=== PATIENT | female | born 1955 | race Caucasian/White ===

== ENCOUNTER 2018-12-30 14:29 | Inpatient (IN) ==
[2018-12-30 14:56] LABS: Bilirubin,Urine Small (Negative); Blood,Urine Negative (Negative); Clarity,Urine Cloudy (Clear); Color,Urine Dark Yellow (Yellow); Glucose,Urine (UA) Normal (Normal); Ketones,Urine Negative (Negative); Leukocyte Esterase,Urine Small (Negative); Nitrite,Urine Negative (Negative); Protein,Urine Trace mg/dL (Neg-Trace); Specific Gravity,Urine 1.024 (1.010-1.025); Urobilinogen,Urine Normal (Normal)
[2018-12-30 14:59] LABS: Mean Platelet Volume 11.1 fL (9.4-12.4); Red Cell Distribution Width 14.5 % (11.5-14.5)
[2018-12-30 15:01] LABS: Hematocrit 31.8 % (35.3-44.9); Mean Corpuscular HGB Conc 34.6 g/dL (31.6-35.5); Mean Corpuscular Hemoglobin 35.3 pg (28.0-33.3); Mean Corpuscular Volume 101.9 fL (83.0-100.0); Monocytes # 0.1 K/mcL (0.0-1.3); Red Blood Count 3.12 M/mcL (3.82-4.97)
[2018-12-30 15:08] LABS: Bacteria,Urine Moderate per hpf (None-Few); Hyaline Casts,Urine Few per lpf (None-Few); Squamous Epithelial Cell,Urine Many per lpf (None-Few); WBC,Urine 15-30 per hpf (0-3)
[2018-12-30] MEDS ORDERED: 0.9 % Sodium Chloride 1,000 ML IVC ONE (15:13)
[2018-12-30] MEDS ORDERED: Ondansetron 4 MG/2 ML VIAL IVP STA (15:14)
[2018-12-30 15:19] LABS: Alanine Aminotransferase 30 Units/L (7-52); Albumin 3.7 g/dL (3.5-5.7); Albumin/Globulin Ratio 1.9 (1.1-2.2); Alkaline Phosphatase 60 Units/L (34-104); Amylase 18 Units/L (29-103); Aspartate Amino Transferase 16 Units/L (13-39); BUN/Creatinine Ratio 12 (6-26); Bilirubin,Direct 0.2 mg/dL (0.0-0.2); Bilirubin,Indirect 0.7 mg/dL (0.0-1.0); Bilirubin,Total 0.9 mg/dL (0.3-1.0); Blood Urea Nitrogen 8 mg/dL (8-23); Calcium 8.9 mg/dL (8.6-10.3); Carbon Dioxide 27 mEq/L (23-29); Chloride 98 mEq/L (98-107); Glucose 109 mg/dL (70-105); Lipase 12 Units/L (11-82); Osmolality,Calculated 277 (280-300); Potassium 3.4 mEq/L (3.5-5.1); Sodium 134 mEq/L (136-145); Total Protein 5.7 g/dL (6.4-8.9); eGFR For African Americans > 60 (> 60); eGFR For Non-African Americans > 60 (> 60)
[2018-12-30 15:40] LABS: Platelet Count 71 K/mcL (140-400); White Blood Count 0.4 K/mcL (4.3-11.1)
[2018-12-30 15:45] LABS: Lymphocytes # 0.3 K/mcL (0.6-4.6)
[2018-12-30 15:46] LABS: Anisocytosis 1+ (Not Present); Macrocytosis Present (Not Present); Platelet Estimate Decreased (Normal); Reactive Lymphocytes Present (Not Present)
[2018-12-30] MEDS ORDERED: Cefepime HCl 1,000 MG in Water for inj. (sterile) 10 ML IVP STA ×2 (16:04→17:03)
[2018-12-30] MEDS: Ringers Solution, Lactated 1,000 ML IVC SCH (22:34)
[2018-12-30] MEDS: Acyclovir 200 MG CAPSULE PO SCH (22:34)
[2018-12-31] MEDS: Cefepime HCl 2,000 MG in 0.9 % Sodium Chloride Mini Bag 100 ML IVPB SCH ×3 (01:07→20:09)
[2018-12-31] MEDS: *HR* Promethazine 25 MG/ML VIAL IVP PRN (01:08)
[2018-12-31] MEDS: Ringers Solution, Lactated 1,000 ML IVC SCH (04:20)
[2018-12-31] MEDS: *HR* Heparin 5,000 UNIT/ML VIAL SQ SCH ×2 (04:38→17:31)
[2018-12-31 05:55] LABS: Adenovirus Not Detected (Not Detect); Bordetella Pertussis Not Detected (Not Detect); Chlamydophila pneumoniae Not Detected (Not Detect); Coronavirus 229E Not Detected (Not Detect); Coronavirus HKU1 Not Detected (Not Detect); Coronavirus NL63 Not Detected (Not Detect); Coronavirus OC43 Not Detected (Not Detect); Human Metapneumovirus Not Detected (Not Detect); Human Rhinovirus/Enterovirus Not Detected (Not Detect); Influenza A Subtype 2009 H1 Not Detected (Not Detect); Influenza A Untypeable Not Detected (Not Detect); Influenza B Not Detected (Not Detect); Mycoplasma pneumoniae Not Detected (Not Detect); Parainfluenza Virus 1 Not Detected (Not Detect); Parainfluenza Virus 2 Not Detected (Not Detect); Parainfluenza Virus 3 Not Detected (Not Detect); Parainfluenza Virus 4 Not Detected (Not Detect); Respiratory Syncytial Virus Not Detected (Not Detect)
[2018-12-31 06:08] LABS: Hematocrit 27.4 % (35.3-44.9)
[2018-12-31 06:09] LABS: Basophils % 2.1 %; Eosinophils % 4.2 %; Hemoglobin 9.3 g/dL (11.5-15.4); Immature Granulocytes % 2.1 % (0-4); Lymphocytes # 0.2 K/mcL (0.6-4.6); Lymphocytes % 37.5 %; Mean Corpuscular HGB Conc 33.9 g/dL (31.6-35.5); Mean Corpuscular Hemoglobin 35.4 pg (28.0-33.3); Mean Corpuscular Volume 104.2 fL (83.0-100.0); Mean Platelet Volume 10.9 fL (9.4-12.4); Monocytes # 0.2 K/mcL (0.0-1.3); Monocytes % 31.3 %; Neutrophils # 0.1 K/mcL (1.6-8.9); Red Blood Count 2.63 M/mcL (3.82-4.97); Red Cell Distribution Width 14.2 % (11.5-14.5); Segmented Neutrophils % 22.8 %
[2018-12-31 06:33] LABS: BUN/Creatinine Ratio 6 (6-26); Blood Urea Nitrogen 4 mg/dL (8-23); Calcium 8.2 mg/dL (8.6-10.3); Carbon Dioxide 28 mEq/L (23-29); Chloride 101 mEq/L (98-107); Glucose 94 mg/dL (70-105); Magnesium 1.6 mg/dL (1.6-2.6); Osmolality,Calculated 277 (280-300); Phosphorous 3.4 mg/dL (2.7-4.5); Potassium 3.8 mEq/L (3.5-5.1); Sodium 135 mEq/L (136-145); eGFR For African Americans > 60 (> 60); eGFR For Non-African Americans > 60 (> 60)
[2018-12-31 07:05] LABS: Platelet Count 74 K/mcL (140-400); White Blood Count 0.5 K/mcL (4.3-11.1)
[2018-12-31] MEDS: Acyclovir 200 MG CAPSULE PO SCH ×2 (08:53→20:09)
[2018-12-31] MEDS: Cholecalciferol (D-3) 1,000 UNIT (25MCG) TABLET PO SCH (08:53)
[2018-12-31] MEDS ORDERED: FLUCONAZOLE 400 MG PO SCH (09:00)
[2018-12-31] MEDS: 0.9 % Sodium Chloride 1,000 ML IVC SCH (12:56)
[2018-12-31] MEDS: Ondansetron 4 MG/2 ML VIAL IVP PRN (18:44)
[2019-01-01] MEDS: 0.9 % Sodium Chloride 1,000 ML IVC SCH ×3 (06:09→17:55)
[2019-01-01] MEDS: *HR* Heparin 5,000 UNIT/ML VIAL SQ SCH ×2 (06:18→17:54)
[2019-01-01] MEDS: Cefepime HCl 2,000 MG in 0.9 % Sodium Chloride Mini Bag 100 ML IVPB SCH ×2 (08:38→19:29)
[2019-01-01] MEDS: *HR* Promethazine 25 MG/ML VIAL IVP PRN ×2 (08:39→17:55)
[2019-01-01] MEDS: Cholecalciferol (D-3) 1,000 UNIT (25MCG) TABLET PO SCH (08:39)
[2019-01-01 08:40] LABS: Hematocrit 28.1 % (35.3-44.9); Hemoglobin 9.6 g/dL (11.5-15.4); Mean Corpuscular HGB Conc 34.2 g/dL (31.6-35.5); Mean Corpuscular Hemoglobin 36.1 pg (28.0-33.3); Mean Corpuscular Volume 105.6 fL (83.0-100.0); Mean Platelet Volume 10.8 fL (9.4-12.4); Monocytes # 0.7 K/mcL (0.0-1.3); Nucleated Red Blood Cells 0.8 /100 WBC (0); Platelet Count 110 K/mcL (140-400); Red Blood Count 2.66 M/mcL (3.82-4.97); Red Cell Distribution Width 14.6 % (11.5-14.5)
[2019-01-01] MEDS: Acyclovir 200 MG CAPSULE PO SCH ×2 (08:40→21:24)
[2019-01-01 08:44] LABS: White Blood Count 3.7 K/mcL (4.3-11.1)
[2019-01-01] MEDS ORDERED: Acetaminophen 325 MG TABLET PO PRN (08:51)
[2019-01-01 08:54] LABS: BUN/Creatinine Ratio 9 (6-26); Blood Urea Nitrogen 5 mg/dL (8-23); Calcium 8.1 mg/dL (8.6-10.3); Carbon Dioxide 27 mEq/L (23-29); Chloride 103 mEq/L (98-107); Glucose 91 mg/dL (70-105); Osmolality,Calculated 281 (280-300); Potassium 3.5 mEq/L (3.5-5.1); Sodium 137 mEq/L (136-145); eGFR For African Americans > 60 (> 60); eGFR For Non-African Americans > 60 (> 60)
[2019-01-01 09:30] LABS: Anisocytosis 1+ (Not Present); Lymphocytes # 0.5 K/mcL (0.6-4.6); Neutrophils # 2.5 K/mcL (1.6-8.9); Platelet Estimate Decreased (Normal)
[2019-01-01 09:31] LABS: Macrocytosis Present (Not Present)
[2019-01-01] MEDS ORDERED: Isovue-370 500 ML BOTTLE IVP ONE (18:16)
[2019-01-02] MEDS: Melatonin 3 MG TABLET PO PRN ×2 (00:27→22:08)
[2019-01-02] MEDS: *HR* Promethazine 25 MG/ML VIAL IVP SCH ×5 (00:29→23:39)
[2019-01-02] MEDS: 0.9 % Sodium Chloride 1,000 ML IVC SCH ×2 (06:24→20:18)
[2019-01-02] MEDS: Cefepime HCl 2,000 MG in 0.9 % Sodium Chloride Mini Bag 100 ML IVPB SCH ×2 (06:25→22:08)
[2019-01-02] MEDS: *HR* Heparin 5,000 UNIT/ML VIAL SQ SCH ×2 (06:25→20:19)
[2019-01-02 06:33] LABS: Hemoglobin 9.4 g/dL (11.5-15.4); Mean Corpuscular HGB Conc 33.6 g/dL (31.6-35.5); Mean Corpuscular Hemoglobin 35.9 pg (28.0-33.3); Mean Corpuscular Volume 106.9 fL (83.0-100.0); Mean Platelet Volume 10.5 fL (9.4-12.4); Monocytes # 1.9 K/mcL (0.0-1.3); Nucleated Red Blood Cells 0.5 /100 WBC (0); Platelet Count 154 K/mcL (140-400); Red Blood Count 2.62 M/mcL (3.82-4.97); Red Cell Distribution Width 15.3 % (11.5-14.5)
[2019-01-02 06:37] LABS: White Blood Count 13.4 K/mcL (4.3-11.1)
[2019-01-02 06:51] LABS: Anisocytosis 1+ (Not Present); Large Platelets Present (Not Present); Lymphocytes # 1.9 K/mcL (0.6-4.6); Neutrophils # 9.7 K/mcL (1.6-8.9); Platelet Estimate Normal (Normal)
[2019-01-02 06:52] LABS: Polychromasia 1+ (Not Present)
[2019-01-02 06:59] LABS: BUN/Creatinine Ratio 7 (6-26); Blood Urea Nitrogen 4 mg/dL (8-23); Carbon Dioxide 27 mEq/L (23-29); Chloride 104 mEq/L (98-107); Glucose 81 mg/dL (70-105); Magnesium 1.8 mg/dL (1.6-2.6); Osmolality,Calculated 286 (280-300); Phosphorous 3.3 mg/dL (2.7-4.5); Potassium 3.6 mEq/L (3.5-5.1); Sodium 140 mEq/L (136-145); eGFR For African Americans > 60 (> 60); eGFR For Non-African Americans > 60 (> 60)
[2019-01-02] MEDS: Cholecalciferol (D-3) 1,000 UNIT (25MCG) TABLET PO SCH (20:18)
[2019-01-02] MEDS: Acyclovir 200 MG CAPSULE PO SCH ×2 (20:18→22:08)
[2019-01-03] MEDS: *HR* Heparin 5,000 UNIT/ML VIAL SQ SCH ×2 (05:25→17:22)
[2019-01-03] MEDS: *HR* Promethazine 25 MG/ML VIAL IVP SCH ×3 (05:25→17:22)
[2019-01-03] MEDS: 0.9 % Sodium Chloride 1,000 ML IVC SCH ×3 (05:29→15:15)
[2019-01-03 06:02] LABS: Hematocrit 28.3 % (35.3-44.9); Hemoglobin 9.5 g/dL (11.5-15.4); Mean Corpuscular HGB Conc 33.6 g/dL (31.6-35.5); Mean Corpuscular Hemoglobin 35.6 pg (28.0-33.3); Mean Platelet Volume 10.2 fL (9.4-12.4); Nucleated Red Blood Cells 0.6 /100 WBC (0); Platelet Count 219 K/mcL (140-400); Red Blood Count 2.67 M/mcL (3.82-4.97)
[2019-01-03 06:16] LABS: BUN/Creatinine Ratio 9 (6-26); Blood Urea Nitrogen 5 mg/dL (8-23); Calcium 7.7 mg/dL (8.6-10.3); Carbon Dioxide 24 mEq/L (23-29); Chloride 108 mEq/L (98-107); Glucose 84 mg/dL (70-105); Magnesium 1.7 mg/dL (1.6-2.6); Osmolality,Calculated 284 (280-300); Phosphorous 3.2 mg/dL (2.7-4.5); Potassium 3.4 mEq/L (3.5-5.1); Sodium 139 mEq/L (136-145); eGFR For African Americans > 60 (> 60); eGFR For Non-African Americans > 60 (> 60)
[2019-01-03 06:18] LABS: White Blood Count 22.2 K/mcL (4.3-11.1)
[2019-01-03 07:01] LABS: Lymphocytes # 2.7 K/mcL (0.6-4.6); Monocytes # 0.9 K/mcL (0.0-1.3); Neutrophils # 18.7 K/mcL (1.6-8.9)
[2019-01-03 07:03] LABS: Platelet Estimate Normal (Normal)
[2019-01-03] MEDS: Cholecalciferol (D-3) 1,000 UNIT (25MCG) TABLET PO SCH (08:47)
[2019-01-03] MEDS: Acyclovir 200 MG CAPSULE PO SCH ×2 (08:47→20:34)
[2019-01-03] MEDS: Cefepime HCl 2,000 MG in 0.9 % Sodium Chloride Mini Bag 100 ML IVPB SCH ×2 (08:48→20:34)
[2019-01-03] MEDS: Ondansetron 4 MG/2 ML VIAL IVP PRN (08:56)
[2019-01-03] MEDS: Potassium Chloride Elixir 20 MEQ/15 ML UDC PO SCH ×2 (12:11→15:15)
[2019-01-04] MEDS: 0.9 % Sodium Chloride 1,000 ML IVC SCH (00:54)
[2019-01-04] MEDS: *HR* Promethazine 25 MG/ML VIAL IVP SCH ×2 (00:54→06:07)
[2019-01-04] MEDS: Melatonin 3 MG TABLET PO PRN (00:58)
[2019-01-04 03:38] LABS: Hematocrit 29.3 % (35.3-44.9); Hemoglobin 9.5 g/dL (11.5-15.4); Mean Corpuscular HGB Conc 32.4 g/dL (31.6-35.5); Mean Corpuscular Hemoglobin 35.6 pg (28.0-33.3); Mean Corpuscular Volume 109.7 fL (83.0-100.0); Mean Platelet Volume 9.3 fL (9.4-12.4); Nucleated Red Blood Cells 0.9 /100 WBC (0); Platelet Count 210 K/mcL (140-400); Red Blood Count 2.67 M/mcL (3.82-4.97); Red Cell Distribution Width 16.4 % (11.5-14.5); White Blood Count 15.1 K/mcL (4.3-11.1)
[2019-01-04 04:01] LABS: BUN/Creatinine Ratio 5 (6-26); Blood Urea Nitrogen 3 mg/dL (8-23); Calcium 7.8 mg/dL (8.6-10.3); Carbon Dioxide 26 mEq/L (23-29); Chloride 106 mEq/L (98-107); Glucose 96 mg/dL (70-105); Magnesium 1.8 mg/dL (1.6-2.6); Osmolality,Calculated 278 (280-300); Phosphorous 3.1 mg/dL (2.7-4.5); Potassium 3.9 mEq/L (3.5-5.1); Sodium 136 mEq/L (136-145); eGFR For African Americans > 60 (> 60); eGFR For Non-African Americans > 60 (> 60)
[2019-01-04 04:30] LABS: Anisocytosis 1+ (Not Present); Lymphocytes # 2.7 K/mcL (0.6-4.6); Monocytes # 0.9 K/mcL (0.0-1.3); Neutrophils # 11.5 K/mcL (1.6-8.9); Platelet Estimate Normal (Normal); Polychromasia 1+ (Not Present)
[2019-01-04] MEDS: *HR* Heparin 5,000 UNIT/ML VIAL SQ SCH (06:07)
[2019-01-04] MEDS: Acyclovir 200 MG CAPSULE PO SCH (10:20)
[2019-01-04] MEDS: Cholecalciferol (D-3) 1,000 UNIT (25MCG) TABLET PO SCH (10:21)
[2019-01-04] MEDS: Cefepime HCl 2,000 MG in 0.9 % Sodium Chloride Mini Bag 100 ML IVPB SCH (10:21)
[2019-01-04 11:16] VITALS: BP 132/74
== END 2019-01-04 12:22 | disposition home or self-care (01) | DRG 808 ==
LOC: EMEROOARM 14:29 → 3ANU 14:29
PROVIDERS: ADMIT Student in an Organized Health Care Education/Training Program; ATTEND Student in an Organized Health Care Education/Training Program

== ENCOUNTER 2019-02-09 08:21 | Inpatient (IN) ==
[2019-02-09] MEDS ORDERED: Ondansetron 4 MG/2 ML VIAL IVP ONE ×2 (08:42→09:15)
[2019-02-09] MEDS ORDERED: 0.9 % Sodium Chloride 1,000 ML ONE (08:42)
[2019-02-09] MEDS: 0.9 % Sodium Chloride 1,000 ML IVC SCH ×2 (08:47→10:16)
[2019-02-09 09:05] LABS: Mean Platelet Volume 12.2 fL (9.4-12.4)
[2019-02-09 09:07] LABS: Hematocrit 30.4 % (35.3-44.9); Hemoglobin 10.1 g/dL (11.5-15.4); Lymphocytes # 0.1 K/mcL (0.6-4.6); Mean Corpuscular HGB Conc 33.2 g/dL (31.6-35.5); Mean Corpuscular Hemoglobin 34.8 pg (28.0-33.3); Mean Corpuscular Volume 104.8 fL (83.0-100.0); Red Cell Distribution Width 13.3 % (11.5-14.5)
[2019-02-09 09:10] LABS: INR 1.1; Prothrombin Time 12.2 Seconds (9.4-12.1)
[2019-02-09 09:13] LABS: Activated Partial Thrombo Time 24.2 Seconds (26.0-36.0)
[2019-02-09 09:24] LABS: Alanine Aminotransferase 55 Units/L (7-52); Albumin 3.3 g/dL (3.5-5.7); Albumin/Globulin Ratio 1.7 (1.1-2.2); Alkaline Phosphatase 69 Units/L (34-104); Aspartate Amino Transferase 25 Units/L (13-39); BUN/Creatinine Ratio 22 (6-26); Bilirubin,Direct 0.1 mg/dL (0.0-0.2); Bilirubin,Indirect 0.8 mg/dL (0.0-1.0); Bilirubin,Total 0.9 mg/dL (0.3-1.0); Blood Urea Nitrogen 14 mg/dL (8-23); Calcium 8.6 mg/dL (8.6-10.3); Carbon Dioxide 27 mEq/L (23-29); Chloride 102 mEq/L (98-107); Glucose 100 mg/dL (70-105); Magnesium 1.5 mg/dL (1.6-2.6); Osmolality,Calculated 287 (280-300); Potassium 3.3 mEq/L (3.5-5.1); Sodium 138 mEq/L (136-145); Total Protein 5.3 g/dL (6.4-8.9); eGFR For African Americans > 60 (> 60); eGFR For Non-African Americans > 60 (> 60)
[2019-02-09 09:29] LABS: White Blood Count 0.2 K/mcL (4.3-11.1)
[2019-02-09 09:30] LABS: Platelet Count 30 K/mcL (140-400)
[2019-02-09 09:31] LABS: Troponin I 1.14 ng/mL (< 0.04)
[2019-02-09 09:39] LABS: Monocytes # 0.1 K/mcL (0.0-1.3); Platelet Estimate Marked Decrease (Normal)
[2019-02-09] MEDS ORDERED: Cefepime HCl 2,000 MG in Water for inj. (sterile) 20 ML IVP STA (09:56)
[2019-02-09] MEDS ORDERED: Isovue-370 500 ML BOTTLE IVP ONE ×2 (10:06→12:05)
[2019-02-09 10:16] LABS: Bilirubin,Urine Negative (Negative); Blood,Urine Negative (Negative); Clarity,Urine Cloudy (Clear); Color,Urine Dark Yellow (Yellow); Glucose,Urine (UA) Normal (Normal); Ketones,Urine Negative (Negative); Leukocyte Esterase,Urine Negative (Negative); Nitrite,Urine Negative (Negative); Protein,Urine Trace mg/dL (Neg-Trace)
[2019-02-09 10:18] LABS: Bacteria,Urine None Seen per hpf (None-Few); Hyaline Casts,Urine None Seen per lpf (None-Few); RBC,Urine 0-3 per hpf (0-3); Squamous Epithelial Cell,Urine Many per lpf (None-Few)
[2019-02-09 10:30] LABS: Transitional Epi Cells,Urine Few per hpf (None-Few)
[2019-02-09] MEDS ORDERED: Acetaminophen 325 MG TABLET PO PRN (15:50)
[2019-02-09] MEDS ORDERED: Naloxone 0.4 MG/ML INJ IVP PRN (15:54)
[2019-02-09] MEDS ORDERED: Acetaminophen IV 1,000 MG/100 ML INFUS..BTL IVPB ONE (16:52)
[2019-02-09] MEDS: Ringers Solution, Lactated 1,000 ML IVC SCH (17:49)
[2019-02-09] MEDS: MetroNIDAZOLE 500 MG/100 ML 500 MG/100 ML BAG IVPB SCH ×2 (18:20→18:39)
[2019-02-09] MEDS ORDERED: Cefepime HCl 2,000 MG in Water for inj. (sterile) 20 ML IVP SCH (20:00)
[2019-02-09] MEDS ORDERED: Ibuprofen 600 MG TABLET PO ONE (21:17)
[2019-02-09] MEDS: Acyclovir 200 MG CAPSULE PO SCH (22:03)
[2019-02-09] MEDS: Cefepime HCl 2,000 MG in Water for inj. (sterile) 20 ML IVP SCH (22:06)
[2019-02-10] MEDS: MetroNIDAZOLE 500 MG/100 ML 500 MG/100 ML BAG IVPB SCH ×3 (00:50→15:09)
[2019-02-10 01:31] LABS: Eosinophils % 4.2 %; Hemoglobin 8.5 g/dL (11.5-15.4); Immature Granulocytes % 4.2 % (0-4); Lymphocytes # 0.1 K/mcL (0.6-4.6); Mean Corpuscular Hemoglobin 34.8 pg (28.0-33.3); Mean Corpuscular Volume 102.5 fL (83.0-100.0); Mean Platelet Volume 12.2 fL (9.4-12.4); Monocytes # 0.1 K/mcL (0.0-1.3); Monocytes % 29.2 %; Platelet Count 35 K/mcL (140-400); Red Blood Count 2.44 M/mcL (3.82-4.97); Red Cell Distribution Width 13.4 % (11.5-14.5); Segmented Neutrophils % 12.4 %
[2019-02-10 01:35] LABS: White Blood Count 0.2 K/mcL (4.3-11.1)
[2019-02-10 01:51] LABS: BUN/Creatinine Ratio 26 (6-26); Blood Urea Nitrogen 13 mg/dL (8-23); Calcium 7.7 mg/dL (8.6-10.3); Carbon Dioxide 25 mEq/L (23-29); Chloride 106 mEq/L (98-107); Chol/HDL Ratio 3.6 (0-4.9); Cholesterol 152 mg/dL (< 200); Glucose 99 mg/dL (70-105); HDL Cholesterol 42 mg/dL (40-59); LDL Cholesterol,Calculated 95 mg/dL (0-99); Osmolality,Calculated 284 (280-300); Potassium 3.1 mEq/L (3.5-5.1); Sodium 137 mEq/L (136-145); Triglycerides 76 mg/dL (< 150); eGFR For African Americans > 60 (> 60); eGFR For Non-African Americans > 60 (> 60)
[2019-02-10 02:14] LABS: Platelet Estimate Marked Decrease (Normal)
[2019-02-10 02:57] LABS: Estimated Average Glucose 97 mg/dl
[2019-02-10] MEDS: Ringers Solution, Lactated 1,000 ML IVC SCH ×3 (04:00→23:32)
[2019-02-10] MEDS ORDERED: Potassium Chloride 20 MEQ, Lidocaine 1% 2 ML in 0.9 % Sodium Chloride 250 ML IVPB ONE (04:14)
[2019-02-10] MEDS: Cefepime HCl 2,000 MG in Water for inj. (sterile) 20 ML IVP SCH ×3 (05:38→21:46)
[2019-02-10] MEDS: Pantoprazole 40 MG VIAL IVP SCH (09:00)
[2019-02-10] MEDS: Acyclovir 200 MG CAPSULE PO SCH ×2 (09:00→21:44)
[2019-02-10] MEDS: Fluconazole 100 MG TABLET PO SCH (09:00)
[2019-02-10] MEDS: Acetaminophen 325 MG TABLET PO PRN ×2 (09:18→21:44)
[2019-02-10] MEDS ORDERED: *HR* Enoxaparin 30 MG/0.3 ML SYRINGE SQ SCH (10:00)
[2019-02-10] MEDS: *HR* Enoxaparin 30 MG/0.3 ML SYRINGE SQ SCH ×2 (10:39→17:23)
[2019-02-10] MEDS: *HR* OxyCODONE/APAP 5/325 TABLET PO PRN ×2 (15:59→23:30)
[2019-02-10 17:36] LABS: Adenovirus Not Detected (Not Detect); Bordetella Pertussis Not Detected (Not Detect); Chlamydophila pneumoniae Not Detected (Not Detect); Coronavirus 229E Not Detected (Not Detect); Coronavirus HKU1 Not Detected (Not Detect); Coronavirus NL63 Not Detected (Not Detect); Coronavirus OC43 Not Detected (Not Detect); Human Metapneumovirus Not Detected (Not Detect); Human Rhinovirus/Enterovirus Not Detected (Not Detect); Influenza A Subtype 2009 H1 Not Detected (Not Detect); Influenza A Untypeable Not Detected (Not Detect); Influenza B Not Detected (Not Detect); Mycoplasma pneumoniae Not Detected (Not Detect); Parainfluenza Virus 1 Not Detected (Not Detect); Parainfluenza Virus 2 Not Detected (Not Detect); Parainfluenza Virus 3 Not Detected (Not Detect); Parainfluenza Virus 4 Not Detected (Not Detect); Respiratory Syncytial Virus Not Detected (Not Detect)
[2019-02-11] MEDS: MetroNIDAZOLE 500 MG/100 ML 500 MG/100 ML BAG IVPB SCH ×3 (01:08→15:42)
[2019-02-11 05:49] LABS: Basophils % 0.7 %
[2019-02-11 05:50] LABS: Eosinophils % 0.7 %; Hemoglobin 7.4 g/dL (11.5-15.4); Immature Granulocytes % 2.7 % (0-4); Lymphocytes # 0.1 K/mcL (0.6-4.6); Lymphocytes % 8.9 %; Mean Corpuscular HGB Conc 32.2 g/dL (31.6-35.5); Mean Corpuscular Hemoglobin 34.6 pg (28.0-33.3); Mean Platelet Volume 12.4 fL (9.4-12.4); Monocytes # 0.4 K/mcL (0.0-1.3); Monocytes % 25.3 %; Neutrophils # 0.9 K/mcL (1.6-8.9); Red Blood Count 2.14 M/mcL (3.82-4.97); Red Cell Distribution Width 13.4 % (11.5-14.5); Segmented Neutrophils % 61.7 %; White Blood Count 1.5 K/mcL (4.3-11.1)
[2019-02-11] MEDS: Cefepime HCl 2,000 MG in Water for inj. (sterile) 20 ML IVP SCH ×3 (05:56→20:09)
[2019-02-11] MEDS: *HR* Enoxaparin 30 MG/0.3 ML SYRINGE SQ SCH (05:56)
[2019-02-11 06:09] LABS: BUN/Creatinine Ratio 19 (6-26); Blood Urea Nitrogen 10 mg/dL (8-23); Calcium 7.8 mg/dL (8.6-10.3); Carbon Dioxide 26 mEq/L (23-29); Chloride 106 mEq/L (98-107); Glucose 85 mg/dL (70-105); Osmolality,Calculated 282 (280-300); Potassium 3.4 mEq/L (3.5-5.1); Sodium 137 mEq/L (136-145); eGFR For African Americans > 60 (> 60); eGFR For Non-African Americans > 60 (> 60)
[2019-02-11 06:10] LABS: Mean Corpuscular Volume 107.5 fL (83.0-100.0); Platelet Count 47 K/mcL (140-400)
[2019-02-11] MEDS: Acetaminophen 325 MG TABLET PO PRN (06:15)
[2019-02-11] MEDS: Ringers Solution, Lactated 1,000 ML IVC SCH ×2 (08:54→23:03)
[2019-02-11] MEDS: Pantoprazole 40 MG VIAL IVP SCH (08:54)
[2019-02-11] MEDS: Fluconazole 100 MG TABLET PO SCH (08:54)
[2019-02-11] MEDS: Acyclovir 200 MG CAPSULE PO SCH ×2 (08:54→20:11)
[2019-02-11] MEDS: Potassium Chloride Elixir 20 MEQ/15 ML UDC PO SCH ×2 (08:54→11:39)
[2019-02-11] MEDS ORDERED: 0.9 % Sodium Chloride 250 ML ONE ×2 (10:13→14:03)
[2019-02-11] MEDS: *HR* OxyCODONE/APAP 5/325 TABLET PO PRN ×2 (12:38→20:09)
[2019-02-11] MEDS ORDERED: Aminoglycoside Consult 1 EACH MC ONE (16:59)
[2019-02-11 17:59] LABS: INR 1.5; Prothrombin Time 16.5 Seconds (9.4-12.1)
[2019-02-11 18:00] LABS: Hematocrit 27.4 % (35.3-44.9); Mean Corpuscular HGB Conc 33.9 g/dL (31.6-35.5); Mean Corpuscular Hemoglobin 33.3 pg (28.0-33.3); Mean Platelet Volume 11.2 fL (9.4-12.4); Platelet Count 105 K/mcL (140-400); Red Blood Count 2.79 M/mcL (3.82-4.97); Red Cell Distribution Width 16.9 % (11.5-14.5)
[2019-02-11 18:18] LABS: Hemoglobin 9.3 g/dL (11.5-15.4); Mean Corpuscular Volume 98.2 fL (83.0-100.0); White Blood Count 3.9 K/mcL (4.3-11.1)
[2019-02-11] MEDS ORDERED: Heparin 25,000 UNIT/250 ML D5W 25,000 UNIT/250 ML IV.SOLN IVC SCH (18:40)
[2019-02-11] MEDS ORDERED: *HR* Heparin 5,000 UNIT/ML VIAL IVP PRN ×2 (19:37)
[2019-02-11] MEDS: Ondansetron 4 MG/2 ML VIAL IVP PRN (19:53)
[2019-02-12] MEDS: MetroNIDAZOLE 500 MG/100 ML 500 MG/100 ML BAG IVPB SCH ×2 (01:42→08:29)
[2019-02-12 02:25] LABS: Hematocrit 26.7 % (35.3-44.9); Hemoglobin 9.1 g/dL (11.5-15.4); Mean Corpuscular HGB Conc 34.1 g/dL (31.6-35.5); Mean Corpuscular Hemoglobin 33.8 pg (28.0-33.3); Mean Corpuscular Volume 99.3 fL (83.0-100.0); Mean Platelet Volume 11.3 fL (9.4-12.4); Platelet Count 122 K/mcL (140-400); Red Blood Count 2.69 M/mcL (3.82-4.97); Red Cell Distribution Width 17.4 % (11.5-14.5); White Blood Count 5.7 K/mcL (4.3-11.1)
[2019-02-12 02:44] LABS: BUN/Creatinine Ratio 14 (6-26); Blood Urea Nitrogen 7 mg/dL (8-23); Carbon Dioxide 25 mEq/L (23-29); Chloride 107 mEq/L (98-107); Glucose 88 mg/dL (70-105); Osmolality,Calculated 283 (280-300); Potassium 3.7 mEq/L (3.5-5.1); Sodium 138 mEq/L (136-145); eGFR For African Americans > 60 (> 60); eGFR For Non-African Americans > 60 (> 60)
[2019-02-12 03:13] LABS: Monocytes # 0.6 K/mcL (0.0-1.3); Neutrophils # 4.1 K/mcL (1.6-8.9); Platelet Estimate Slight Decrease (Normal)
[2019-02-12] MEDS: Ondansetron 4 MG/2 ML VIAL IVP PRN (04:03)
[2019-02-12] MEDS: Cefepime HCl 2,000 MG in Water for inj. (sterile) 20 ML IVP SCH ×2 (06:15→13:32)
[2019-02-12] MEDS: *HR* OxyCODONE/APAP 5/325 TABLET PO PRN ×2 (07:41→15:32)
[2019-02-12] MEDS: Fluconazole 100 MG TABLET PO SCH (08:28)
[2019-02-12] MEDS: Pantoprazole 40 MG VIAL IVP SCH (08:28)
[2019-02-12] MEDS: Acyclovir 200 MG CAPSULE PO SCH (08:28)
[2019-02-12 11:38] VITALS: BP 102/57
[2019-02-12] MEDS: Ringers Solution, Lactated 1,000 ML IVC SCH (13:33)
[2019-02-12] MEDS ORDERED: *HR* Enoxaparin 60 MG/0.6 ML SYRINGE SQ ONE (15:10)
== END 2019-02-12 17:00 | disposition home or self-care (01) | DRG 871 ==
LOC: EMEROOARM 08:21 → 2NENU 08:21 → SUATTDRO 15:29 → 2NENU 16:00
PROVIDERS: ADMIT Internal Medicine; ATTEND Internal Medicine

== ENCOUNTER 2019-02-15 07:59 | Inpatient (IN) ==
[2019-02-15] MEDS ORDERED: 0.9 % Sodium Chloride 1,000 ML IVC ONE ×2 (08:32→08:35)
[2019-02-15] MEDS ORDERED: Isovue-370 500 ML BOTTLE IVP ONE (08:32)
[2019-02-15 08:51] LABS: Hematocrit 33.5 % (35.3-44.9); Mean Corpuscular HGB Conc 32.8 g/dL (31.6-35.5); Mean Corpuscular Hemoglobin 33.4 pg (28.0-33.3); Mean Corpuscular Volume 101.8 fL (83.0-100.0); Mean Platelet Volume 10.1 fL (9.4-12.4); Nucleated Red Blood Cells 0.4 /100 WBC (0); Platelet Count 287 K/mcL (140-400); Red Blood Count 3.29 M/mcL (3.82-4.97); Red Cell Distribution Width 17.1 % (11.5-14.5)
[2019-02-15 08:53] LABS: White Blood Count 12.4 K/mcL (4.3-11.1)
[2019-02-15 09:16] LABS: BUN/Creatinine Ratio 8 (6-26); Blood Urea Nitrogen 4 mg/dL (8-23); Carbon Dioxide 29 mEq/L (23-29); Chloride 103 mEq/L (98-107); Glucose 102 mg/dL (70-105); Magnesium 1.5 mg/dL (1.6-2.6); Osmolality,Calculated 291 (280-300); Potassium 2.8 mEq/L (3.5-5.1); Sodium 142 mEq/L (136-145); Troponin I 0.31 ng/mL (< 0.04); eGFR For African Americans > 60 (> 60); eGFR For Non-African Americans > 60 (> 60)
[2019-02-15 09:18] LABS: Bilirubin,Urine Negative (Negative); Blood,Urine Negative (Negative); Clarity,Urine Cloudy (Clear); Color,Urine Yellow (Yellow); Glucose,Urine (UA) Normal (Normal); Ketones,Urine 15 mg/dL (Negative); Leukocyte Esterase,Urine Negative (Negative); Nitrite,Urine Negative (Negative); Protein,Urine 100 mg/dL (Neg-Trace); Specific Gravity,Urine 1.021 (1.010-1.025); Urobilinogen,Urine Normal (Normal)
[2019-02-15 09:21] LABS: Bacteria,Urine None Seen per hpf (None-Few); Squamous Epithelial Cell,Urine Many per lpf (None-Few)
[2019-02-15 09:25] LABS: Neutrophils # 8.9 K/mcL (1.6-8.9)
[2019-02-15 09:26] LABS: Platelet Estimate Normal (Normal); Reactive Lymphocytes Present (Not Present); Toxic Granulation Present (Not Present)
[2019-02-15 09:50] LABS: Mucus,Urine Moderate (Few)
[2019-02-15 09:52] LABS: Hyaline Casts,Urine Few per lpf (None-Few)
[2019-02-15 10:08] LABS: Transitional Epi Cells,Urine Few per hpf (None-Few)
[2019-02-15] MEDS ORDERED: Potassium Chloride Elixir 20 MEQ/15 ML UDC PO ONE (10:26)
[2019-02-15] MEDS ORDERED: cefTRIAXone 2,000 MG in Water for inj. (sterile) 20 ML IVP ONE (10:48)
[2019-02-15] MEDS ORDERED: Furosemide 20 MG/2 ML VIAL IVP ONE (11:02)
[2019-02-15] MEDS ORDERED: Naloxone 0.4 MG/ML INJ IVP PRN (11:03)
[2019-02-15] MEDS ORDERED: *HR* Heparin 5,000 UNIT/ML VIAL IVP PRN (17:09)
[2019-02-15] MEDS ORDERED: *HR* Heparin 5,000 UNIT/ML VIAL IVP ONE (17:09)
[2019-02-15] MEDS ORDERED: *HR* Enoxaparin 60 MG/0.6 ML SYRINGE SQ SCH ×3 (18:00)
[2019-02-15 18:02] LABS: Hematocrit 29.7 % (35.3-44.9); Hemoglobin 9.7 g/dL (11.5-15.4); Mean Corpuscular HGB Conc 32.7 g/dL (31.6-35.5); Mean Corpuscular Hemoglobin 33.2 pg (28.0-33.3); Mean Corpuscular Volume 101.7 fL (83.0-100.0); Platelet Count 294 K/mcL (140-400); Red Blood Count 2.92 M/mcL (3.82-4.97); Red Cell Distribution Width 16.9 % (11.5-14.5); White Blood Count 9.7 K/mcL (4.3-11.1)
[2019-02-15] MEDS: Meropenem 1,000 MG in 0.9 % Sodium Chloride Mini Bag 100 ML IVPB SCH (18:05)
[2019-02-15 18:09] LABS: Heparin anti-factor XA UFH 0.17 IU/mL (0.30-0.70); INR 1.1; Prothrombin Time 12.5 Seconds (9.4-12.1)
[2019-02-15] MEDS: Heparin 25,000 UNIT/250 ML D5W 25,000 UNIT/250 ML IV.SOLN IVC SCH (18:49)
[2019-02-15] MEDS: *HR* Heparin 5,000 UNIT/ML VIAL IVP PRN (18:49)
[2019-02-15] MEDS ORDERED: Acyclovir 200 MG CAPSULE PO SCH (21:00)
[2019-02-15] MEDS: *HR* OxyCODONE/APAP 5/325 TABLET PO PRN (21:28)
[2019-02-16] MEDS: Meropenem 1,000 MG in 0.9 % Sodium Chloride Mini Bag 100 ML IVPB SCH ×2 (00:46→09:31)
[2019-02-16 00:54] LABS: Hematocrit 28.4 % (35.3-44.9); Hemoglobin 9.5 g/dL (11.5-15.4); Mean Corpuscular HGB Conc 33.5 g/dL (31.6-35.5); Mean Corpuscular Hemoglobin 33.5 pg (28.0-33.3); Mean Platelet Volume 9.8 fL (9.4-12.4); Nucleated Red Blood Cells 0.3 /100 WBC (0); Platelet Count 261 K/mcL (140-400); Red Blood Count 2.84 M/mcL (3.82-4.97); White Blood Count 9.9 K/mcL (4.3-11.1)
[2019-02-16 01:14] LABS: BUN/Creatinine Ratio 8 (6-26); Blood Urea Nitrogen 3 mg/dL (8-23); Calcium 7.2 mg/dL (8.6-10.3); Carbon Dioxide 27 mEq/L (23-29); Chloride 108 mEq/L (98-107); Glucose 99 mg/dL (70-105); Magnesium 1.8 mg/dL (1.6-2.6); Osmolality,Calculated 283 (280-300); Potassium 3.4 mEq/L (3.5-5.1); Sodium 138 mEq/L (136-145); eGFR For African Americans > 60 (> 60); eGFR For Non-African Americans > 60 (> 60)
[2019-02-16 01:52] LABS: Lymphocytes # 1.4 K/mcL (0.6-4.6); Monocytes # 0.4 K/mcL (0.0-1.3); Neutrophils # 7.9 K/mcL (1.6-8.9); Platelet Estimate Normal (Normal); Toxic Granulation Present (Not Present)
[2019-02-16] MEDS ORDERED: Fluconazole 100 MG TABLET PO SCH (09:00)
[2019-02-16 09:16] LABS: Lactate Dehydrogenase 270 Units/L (140-271)
[2019-02-16] MEDS: Calcium Gluconate 1gm/50mL 1 GM/50 ML BAG IVPB SCH ×2 (14:59→16:03)
[2019-02-16] MEDS: Piperacillin/Tazobactam 3.375 GM in 0.9 % Sodium Chloride Mini Bag 100 ML IVPB SCH ×2 (16:31→23:32)
[2019-02-16] MEDS: *HR* OxyCODONE/APAP 5/325 TABLET PO PRN (20:22)
[2019-02-17 00:32] LABS: Adenovirus Not Detected (Not Detect); Coronavirus 229E Not Detected (Not Detect); Coronavirus HKU1 Not Detected (Not Detect); Coronavirus NL63 Not Detected (Not Detect); Coronavirus OC43 Not Detected (Not Detect); Human Metapneumovirus Not Detected (Not Detect); Human Rhinovirus/Enterovirus Not Detected (Not Detect); Influenza A Subtype 2009 H1 Not Detected (Not Detect); Influenza A Untypeable Not Detected (Not Detect); Influenza B Not Detected (Not Detect); Parainfluenza Virus 1 Not Detected (Not Detect)
[2019-02-17 00:33] LABS: Bordetella Pertussis Not Detected (Not Detect); Chlamydophila pneumoniae Not Detected (Not Detect); Mycoplasma pneumoniae Not Detected (Not Detect); Parainfluenza Virus 2 Not Detected (Not Detect); Parainfluenza Virus 3 Not Detected (Not Detect); Parainfluenza Virus 4 Not Detected (Not Detect); Respiratory Syncytial Virus Not Detected (Not Detect)
[2019-02-17 05:28] LABS: INR 1.1
[2019-02-17 05:33] LABS: BUN/Creatinine Ratio 6 (6-26); Blood Urea Nitrogen 3 mg/dL (8-23); Calcium 7.6 mg/dL (8.6-10.3); Carbon Dioxide 22 mEq/L (23-29); Chloride 105 mEq/L (98-107); Glucose 87 mg/dL (70-105); Osmolality,Calculated 278 (280-300); Potassium 3.6 mEq/L (3.5-5.1); Sodium 136 mEq/L (136-145); eGFR For African Americans > 60 (> 60); eGFR For Non-African Americans > 60 (> 60)
[2019-02-17 05:35] LABS: Basophils # 0.1 K/mcL (0.0-0.2); Basophils % 0.6 %; Hematocrit 30.4 % (35.3-44.9); Hemoglobin 9.6 g/dL (11.5-15.4); Immature Granulocytes % 7.5 % (0-4); Immature Platelets 8.3 % (1.1-6.1); Lymphocytes # 0.7 K/mcL (0.6-4.6); Lymphocytes % 9.2 %; Mean Corpuscular HGB Conc 31.6 g/dL (31.6-35.5); Mean Corpuscular Hemoglobin 33.1 pg (28.0-33.3); Mean Corpuscular Volume 104.8 fL (83.0-100.0); Mean Platelet Volume 11.4 fL (9.4-12.4); Monocytes # 1.3 K/mcL (0.0-1.3); Monocytes % 15.7 %; Neutrophils # 5.4 K/mcL (1.6-8.9); Nucleated Red Blood Cells 0.2 /100 WBC (0); Platelet Count 221 K/mcL (140-400); Red Cell Distribution Width 16.9 % (11.5-14.5)
[2019-02-17 05:55] LABS: Anisocytosis 1+ (Not Present); Platelet Estimate Normal (Normal); Polychromasia 1+ (Not Present); Reactive Lymphocytes Present (Not Present)
[2019-02-17] MEDS: Piperacillin/Tazobactam 3.375 GM in 0.9 % Sodium Chloride Mini Bag 100 ML IVPB SCH ×3 (08:59→23:44)
[2019-02-17] MEDS: *HR* OxyCODONE/APAP 5/325 TABLET PO PRN ×2 (09:11→21:37)
[2019-02-17] MEDS: Heparin 25,000 UNIT/250 ML D5W 25,000 UNIT/250 ML IV.SOLN IVC SCH (10:01)
[2019-02-17] MEDS: Furosemide 20 MG/2 ML VIAL IVP SCH ×2 (13:18→16:54)
[2019-02-17] MEDS: *HR* Heparin 5,000 UNIT/ML VIAL IVP PRN (18:49)
[2019-02-18 01:26] LABS: Hematocrit 29.3 % (35.3-44.9); Hemoglobin 9.5 g/dL (11.5-15.4); Mean Corpuscular HGB Conc 32.4 g/dL (31.6-35.5); Mean Corpuscular Hemoglobin 32.3 pg (28.0-33.3); Mean Corpuscular Volume 99.7 fL (83.0-100.0); Mean Platelet Volume 9.9 fL (9.4-12.4); Platelet Count 321 K/mcL (140-400); Red Blood Count 2.94 M/mcL (3.82-4.97); Red Cell Distribution Width 16.5 % (11.5-14.5); White Blood Count 7.9 K/mcL (4.3-11.1)
[2019-02-18 01:46] LABS: BUN/Creatinine Ratio 7 (6-26); Blood Urea Nitrogen 3 mg/dL (8-23); Calcium 7.8 mg/dL (8.6-10.3); Carbon Dioxide 27 mEq/L (23-29); Chloride 103 mEq/L (98-107); Glucose 91 mg/dL (70-105); Osmolality,Calculated 286 (280-300); Potassium 3.1 mEq/L (3.5-5.1); Sodium 140 mEq/L (136-145); eGFR For African Americans > 60 (> 60); eGFR For Non-African Americans > 60 (> 60)
[2019-02-18] MEDS ORDERED: Tetracaine/Benzocaine/Butamben 1 SPRAY AEROSOL MM ONE (06:46)
[2019-02-18] MEDS ORDERED: *HR* FentaNYL (PF) 100 MCG/2 ML VIAL IVP ONE (06:46)
[2019-02-18] MEDS ORDERED: *HR* Midazolam HCl 5 MG/5 ML VIAL IVP ONE (06:46)
[2019-02-18] MEDS ORDERED: Albuterol 2.5 MG/3 ML NEBULIZER IH ONE (06:46)
[2019-02-18] MEDS: Piperacillin/Tazobactam 3.375 GM in 0.9 % Sodium Chloride Mini Bag 100 ML IVPB SCH ×2 (08:31→16:28)
[2019-02-18] MEDS: Ringers Solution, Lactated 1,000 ML IVC SCH (08:34)
[2019-02-18] MEDS ORDERED: Lidocaine Viscous Oral Soln 15 ML SOLUTION ONE (10:10)
[2019-02-18] MEDS: Furosemide 20 MG/2 ML VIAL IVP SCH ×2 (12:45→16:30)
[2019-02-18] MEDS: *HR* OxyCODONE/APAP 5/325 TABLET PO PRN (14:52)
[2019-02-18] MEDS: *HR* Rivaroxaban 15 MG TABLET PO SCH (22:18)
[2019-02-19 00:38] LABS: A.galactomannan Ag Index 0.09
[2019-02-19] MEDS: Piperacillin/Tazobactam 3.375 GM in 0.9 % Sodium Chloride Mini Bag 100 ML IVPB SCH ×3 (00:55→16:23)
[2019-02-19] MEDS: *HR* OxyCODONE/APAP 5/325 TABLET PO PRN (00:57)
[2019-02-19] MEDS: Ringers Solution, Lactated 1,000 ML IVC SCH (01:04)
[2019-02-19 07:06] LABS: Hematocrit 30.8 % (35.3-44.9); Hemoglobin 10.2 g/dL (11.5-15.4); Mean Corpuscular HGB Conc 33.1 g/dL (31.6-35.5); Mean Corpuscular Hemoglobin 32.9 pg (28.0-33.3); Mean Corpuscular Volume 99.4 fL (83.0-100.0); Mean Platelet Volume 9.6 fL (9.4-12.4); Platelet Count 378 K/mcL (140-400); Red Cell Distribution Width 16.7 % (11.5-14.5); White Blood Count 7.2 K/mcL (4.3-11.1)
[2019-02-19 07:33] LABS: BUN/Creatinine Ratio 5 (6-26); Blood Urea Nitrogen 5 mg/dL (8-23); Calcium 8.2 mg/dL (8.6-10.3); Carbon Dioxide 25 mEq/L (23-29); Chloride 105 mEq/L (98-107); Glucose 92 mg/dL (70-105); Osmolality,Calculated 289 (280-300); Potassium 3.5 mEq/L (3.5-5.1); Sodium 141 mEq/L (136-145); eGFR For African Americans > 60 (> 60); eGFR For Non-African Americans 54 (> 60)
[2019-02-19 08:38] LABS: Magnesium 1.6 mg/dL (1.6-2.6)
[2019-02-19] MEDS: *HR* Rivaroxaban 15 MG TABLET PO SCH ×2 (09:08→19:55)
[2019-02-19] MEDS ORDERED: Furosemide 20 MG/2 ML VIAL IVP ONE (12:12)
[2019-02-19] MEDS: Ondansetron 4 MG/2 ML VIAL IVP PRN ×2 (12:49→19:55)
[2019-02-19 13:58] LABS: Appearance of Body Fluid Clear (Clear); Source of Body Fluid RIGHT MIDDLE LOBE LU; Volume of Body Fluid 15 mL
[2019-02-19] MEDS: *HR* Promethazine 25 MG/ML VIAL IVP PRN (17:39)
[2019-02-20] MEDS: Piperacillin/Tazobactam 3.375 GM in 0.9 % Sodium Chloride Mini Bag 100 ML IVPB SCH ×3 (00:09→17:07)
[2019-02-20 00:50] LABS: Hemoglobin 10.6 g/dL (11.5-15.4); Mean Corpuscular HGB Conc 33.1 g/dL (31.6-35.5); Mean Corpuscular Hemoglobin 33.1 pg (28.0-33.3); Mean Platelet Volume 9.4 fL (9.4-12.4); Platelet Count 400 K/mcL (140-400); Red Cell Distribution Width 16.5 % (11.5-14.5); White Blood Count 7.3 K/mcL (4.3-11.1)
[2019-02-20 01:09] LABS: Calcium 8.7 mg/dL (8.6-10.3); Magnesium 1.6 mg/dL (1.6-2.6); Potassium 3.5 mEq/L (3.5-5.1)
[2019-02-20] MEDS: *HR* Rivaroxaban 15 MG TABLET PO SCH ×2 (07:54→20:49)
[2019-02-20] MEDS ORDERED: Furosemide 20 MG/2 ML VIAL IVP SCH (08:00)
[2019-02-21] MEDS: Piperacillin/Tazobactam 3.375 GM in 0.9 % Sodium Chloride Mini Bag 100 ML IVPB SCH ×3 (00:18→17:08)
[2019-02-21] MEDS: *HR* Rivaroxaban 15 MG TABLET PO SCH ×2 (08:38→21:34)
[2019-02-21 08:43] LABS: Aspergillus Ab by CF <1:8 (<1:8); Coccidioides Ab by CF <1:2 (<1:2)
[2019-02-21] MEDS: *HR* OxyCODONE/APAP 5/325 TABLET PO PRN (10:29)
[2019-02-21 10:50] LABS: Calcium 8.5 mg/dL (8.6-10.3); Potassium 3.2 mEq/L (3.5-5.1)
[2019-02-21] MEDS: Ondansetron 4 MG/2 ML VIAL IVP PRN (12:53)
[2019-02-21 17:14] LABS: Influenza A PCR Body Fluid NOT DETECTED; Influenza B PCR Body Fluid NOT DETECTED; RVP Body Fluid Source BAL
[2019-02-21 18:29] LABS: BronchAsperGalactomannan Index 0.07
[2019-02-22] MEDS: Piperacillin/Tazobactam 3.375 GM in 0.9 % Sodium Chloride Mini Bag 100 ML IVPB SCH ×4 (01:00→23:09)
[2019-02-22 07:12] LABS: Calcium 8.3 mg/dL (8.6-10.3)
[2019-02-22 09:40] LABS: RSV PCR Body Fluid NOT DETECTED
[2019-02-22] MEDS: *HR* Rivaroxaban 15 MG TABLET PO SCH ×2 (11:55→23:09)
[2019-02-22] MEDS: *HR* Promethazine 25 MG/ML VIAL IVP PRN (14:15)
[2019-02-22] MEDS: *HR* OxyCODONE/APAP 5/325 TABLET PO PRN ×2 (14:16→23:09)
[2019-02-22 14:57] LABS: HSV Source BAL
[2019-02-22] MEDS ORDERED: Isovue-370 500 ML BOTTLE IVP ONE (17:35)
[2019-02-22 18:20] LABS: Albumin 2.8 g/dL (3.5-5.7); Albumin/Globulin Ratio 1.2 (1.1-2.2); Bilirubin,Direct 0.1 mg/dL (0.0-0.2); Bilirubin,Indirect 0.3 mg/dL (0.0-1.0); Bilirubin,Total 0.4 mg/dL (0.3-1.0); Globulin 2.3 g/dL (2.4-3.5); Total Protein 5.1 g/dL (6.4-8.9)
[2019-02-23 04:30] LABS: Hematocrit 31.8 % (35.3-44.9); Hemoglobin 10.3 g/dL (11.5-15.4); Mean Corpuscular HGB Conc 32.4 g/dL (31.6-35.5); Mean Corpuscular Hemoglobin 32.6 pg (28.0-33.3); Mean Corpuscular Volume 100.6 fL (83.0-100.0); Mean Platelet Volume 9.4 fL (9.4-12.4); Platelet Count 356 K/mcL (140-400); Red Blood Count 3.16 M/mcL (3.82-4.97); Red Cell Distribution Width 15.2 % (11.5-14.5); White Blood Count 4.6 K/mcL (4.3-11.1)
[2019-02-23 04:51] LABS: Calcium 8.6 mg/dL (8.6-10.3); Potassium 4.3 mEq/L (3.5-5.1)
[2019-02-23] MEDS: *HR* Rivaroxaban 15 MG TABLET PO SCH (09:11)
[2019-02-23] MEDS: Piperacillin/Tazobactam 3.375 GM in 0.9 % Sodium Chloride Mini Bag 100 ML IVPB SCH (09:13)
[2019-02-23 11:06] VITALS: BP 153/79
[2019-02-23] MEDS ORDERED: Aminoglycoside Consult 1 EACH MC ONE (15:33)
== END 2019-02-23 15:34 | disposition home or self-care (01) | DRG 871 ==
LOC: EMEROOARM 07:59 → 2NENU 07:59 → SUATTDRO 15:18 → 2NENU 16:59
PROVIDERS: ADMIT Internal Medicine; ATTEND Internal Medicine